=== PATIENT | female | born 1985 | race Caucasian/White ===

== ENCOUNTER 2018-01-07 06:20 | Inpatient (IN) | payer BC ==
[2018-01-07] MEDS ORDERED: Dextrose 5%-Lactated Ringers 1,000 ML IV SCH (06:45)
[2018-01-07] MEDS ORDERED: Celecoxib 200 MG Cap PO ONE (06:50)
[2018-01-07] MEDS ORDERED: Scopolamine 1.5 MG Transdermal Patch TOP ONE (06:50)
[2018-01-07] MEDS ORDERED: Acetaminophen 500 MG Tab PO ONE (06:50)
[2018-01-07] MEDS ORDERED: Gabapentin 300 MG Cap PO ONE (06:50)
[2018-01-07] MEDS ORDERED: cefOXitin 2 GM in Sodium Chloride 0.9% 50 ML IV ONE (06:50)
[2018-01-07] MEDS ORDERED: cefOXitin 2 GM Vial ONE (06:51)
[2018-01-07] MEDS ORDERED: fentaNYL 250 MCG/5 ML SDV ONE ×2 (07:33→09:32)
[2018-01-07] MEDS ORDERED: Neostigmine Methylsulfate 1 MG/ML 5 ML Syringe ONE (07:34)
[2018-01-07] MEDS ORDERED: Propofol 200 MG/20 ML SDV ONE (07:34)
[2018-01-07] MEDS ORDERED: Rocuronium 50 MG/5 ML Vial ONE (07:34)
[2018-01-07] MEDS ORDERED: Ondansetron 4 MG/2 ML SDV ONE (07:34)
[2018-01-07] MEDS ORDERED: Glycopyrrolate 0.2 MG/ML 5 ML MDV ONE (07:34)
[2018-01-07] MEDS ORDERED: Dexamethasone 4 MG/ML SDV ONE (07:34)
[2018-01-07] MEDS ORDERED: Succinylcholine 200 MG/10 ML MDV ONE (07:34)
[2018-01-07] MEDS ORDERED: Ropivacaine 60 ML, Dexamethasone 8 MG, EPINEPHrine 0.4 MG, Sodium Chloride 0.9% 17.6 ML NERVRT SCH ×4 (08:00)
[2018-01-07] MEDS ORDERED: Lidocaine 2% 100 MG/5 ML Syringe IVPUSH ONE (08:00)
[2018-01-07] MEDS ORDERED: Ketamine 500 MG/5 ML MDV IV SCH (08:00)
[2018-01-07] MEDS ORDERED: Lactated Ringers 1,000 ML ONE (09:26)
[2018-01-07] MEDS ORDERED: fentaNYL 100 MCG/2 ML SDV ONE (11:02)
[2018-01-07] MEDS ORDERED: hydrOXYzine HCl 100 MG/2 ML SDV IM ONE ×2 (11:27→15:40)
[2018-01-07] MEDS: Lidocaine 0.4%/D5W 2 GM/500 ML BAG IV SCH (12:15)
[2018-01-07] MEDS: Dextrose 5%-Lactated Ringers 1,000 ML IV SCH ×3 (12:19→23:31)
[2018-01-07] MEDS: hydrOXYzine HCl 100 MG/2 ML SDV IM PRN ×2 (12:30→21:55)
[2018-01-07] MEDS ORDERED: Labetalol 20 MG/4 ML Syringe IVPUSH PRN (13:00)
[2018-01-07] MEDS ORDERED: diphenhydrAMINE 50 MG/ML SDV IVPUSH PRN (13:00)
[2018-01-07] MEDS ORDERED: Ondansetron 4 MG/2 ML SDV IVPUSH PRN (13:00)
[2018-01-07] MEDS ORDERED: SCOPOLAMINE PATCH CHECK TOP SCH (13:00)
[2018-01-07] MEDS ORDERED: Metoclopramide 10 MG/2 ML SDV IVPUSH PRN (13:00)
[2018-01-07] MEDS: Acetaminophen Soln 650 MG/20.3 ML UD Cup PO SCH ×2 (13:47→19:45)
[2018-01-07] MEDS: cefOXitin 2 GM in Sodium Chloride 0.9% 50 ML IV SCH ×2 (13:59→19:45)
[2018-01-07] MEDS ORDERED: Pantoprazole 40 MG Vial IVPUSH SCH (14:00)
[2018-01-07] MEDS: Gabapentin 250 MG/5 ML Solution ML 470 ML Bottle PO SCH ×2 (14:02→21:54)
[2018-01-07] MEDS ORDERED: Meperidine PF 100 MG/ML Syringe IM ONE (15:40)
[2018-01-07] MEDS ORDERED: MVI, Adult with Vitamin K 10 ML, Thiamine 100 MG, Chromium/Copper/Mang/Selen/Zn 1 ML in... IV SCH ×4 (16:00)
[2018-01-07] MEDS: Heparin Sodium 5,000 Units/ML Vial SUBCUT SCH (17:23)
[2018-01-08] MEDS: cefOXitin 2 GM in Sodium Chloride 0.9% 50 ML IV SCH ×2 (01:24→07:40)
[2018-01-08] MEDS: Lidocaine 0.4%/D5W 2 GM/500 ML BAG IV SCH (01:25)
[2018-01-08] MEDS: Acetaminophen Soln 650 MG/20.3 ML UD Cup PO SCH ×4 (01:27→19:49)
[2018-01-08] MEDS ORDERED: Iohexol 647 MG/ML 50 ML SDV PO STA (03:26)
[2018-01-08] MEDS: Dextrose 5%-Lactated Ringers 1,000 ML IV SCH ×2 (05:24→12:27)
[2018-01-08] MEDS: Heparin Sodium 5,000 Units/ML Vial SUBCUT SCH ×2 (05:27→19:00)
[2018-01-08] MEDS: Celecoxib 200 MG Cap PO SCH (07:43)
--- NOTE | 2018-01-08 08:38 | CR ---
UGI wo KUB HISTORY: eval R -Y GBP FINDINGS: Limited upper GI series was obtained without fluoroscopy. Water-soluble contrast was admini stered orally. Immediate along with 15 minute delayed images were obtained. Small gastric pouch is de monstrated. Contrast passes readily through the gastrojejunostomy into loops of jejunum. No obstructi on is identified. There is no contrast extravasation. Surgical drain is noted left upper quadrant. IMPRESSION: No postoperative complication identified status post Nicole-en-Y gastric bypass.
[2018-01-08] MEDS ORDERED: Ondansetron 4 MG Tab.DIS PO PRN (08:51)
[2018-01-08] MEDS: Gabapentin 250 MG/5 ML Solution ML 470 ML Bottle PO SCH ×3 (09:48→20:43)
[2018-01-08] MEDS ORDERED: Pantoprazole 40 MG Delayed-Release Granules 1 Packet PO SCH (14:00)
[2018-01-08] MEDS ORDERED: MVI, Adult with Vitamin K 10 ML, Thiamine 100 MG, Chromium/Copper/Mang/Selen/Zn 1 ML in... IV SCH ×4 (16:00)
--- NOTE | 2018-01-08 20:45 | PN ---
DATE OF SERVICE: 01/08/2018 SUBJECTIVE: Emeli is postop day 1 following a Nicole-en-Y gastric bypass surgery. Her upper GI this morning was normal. Vital signs have been stable. Her pain is controlled and she has been ambulating. REVIEW OF SYSTEMS: Remainder of review of systems negative for any pertinent positives and negatives. OBJECTIVE: GENERAL: Emeli Stout is a 32-year-old female. She is alert and orientated, sitting up in the chair. VITAL SIGNS: TPR 97.9, 79, 17, blood pressure 154/90. HEENT: Negative. NECK: Supple. HEART: Regular rate and rhythm. LUNGS: Clear. ABDOMEN: Dressings dry and intact. DEXTER drain is intact and has put out 100 mL of a light pink serosanguineous drainage. EXTREMITIES: Without peripheral edema. ASSESSMENT: Laparoscopic Nicole-en-Y gastric bypass surgery, repair of paraesophageal diaphragmatic hernia, and Rogers-Cut needle liver biopsy. PLAN: 1. Decrease IV to 100 mL per hour. 2. Step-2 gastric bypass diet without cereal. 3. Dressing off, may shower. 4. Communication order 3 med cups, one every 20 minutes, 3 per hour recorded at bedside. 5. Good pulmonary toilet. 6. Zofran ODT 4 mg q.4 hours p.r.n. nausea sublingual. 7. We will evaluate p.r.n. or in a.m. Micheline Healy PA-C /[id number]
[2018-01-09] MEDS: Acetaminophen Soln 650 MG/20.3 ML UD Cup PO SCH ×2 (01:58→08:00)
[2018-01-09] MEDS: Heparin Sodium 5,000 Units/ML Vial SUBCUT SCH (05:10)
[2018-01-09] MEDS: Celecoxib 200 MG Cap PO SCH (08:00)
[2018-01-09] MEDS: Gabapentin 250 MG/5 ML Solution ML 470 ML Bottle PO SCH (08:00)
[2018-01-09] MEDS ORDERED: Cyanocobalamin (Vitamin B12) 1,000 MCG/ML SDV IM ONE (09:00)
[2018-01-09] MEDS ORDERED: Magnesium Hydroxide 400 MG/5 ML Susp 30 ML Cup PO ONE (11:05)
--- NOTE | 2018-01-11 08:43 | DISCH ---
FINAL DIAGNOSES: 1. Morbid obesity. 2. Hepatomegaly. 3. Paraesophageal diaphragmatic hernia. 4. Mediastinal lipoma. 5. Obstructive sleep apnea. PROCEDURES: Operative procedures done on 01/07/2018, Nicole-en-Y gastric bypass with long limb gastroenterostomy, Rogers-Cut needle liver biopsy, repair of paraesophageal diaphragmatic hernia, and excision of mediastinal lipoma. HOSPITAL COURSE: This is a 32-year-old presenting with a longstanding history of morbid obesity and increasingly significant comorbidities. After preoperative evaluation and discussion, she wished to proceed with a gastric bypass procedure. This was done on the day of admission, with the above-mentioned additional procedures. Postoperatively, she has had no major problems. She will be discharged to home with a combination of Tylenol and gabapentin for her pain, as Celebrex is being worked on in terms of possibly getting that covered by her insurance. She will be taking the gabapentin and, if available, Celebrex x2 weeks, and otherwise, she will follow up with Micheline Healy PA-C, at [facility] in [place] on 01/19/2018.
--- NOTE | 2018-01-13 09:46 | OR ---
DATE OF PROCEDURE: 01/07/2018 PREOPERATIVE DIAGNOSIS: Morbid obesity. POSTOPERATIVE DIAGNOSES: 1. Morbid obesity. 2. Marked hepatomegaly. 3. Paraesophageal diaphragmatic hernia. 4. Mediastinal lipoma. OPERATIVE PROCEDURES: 1. Laparoscopic Nicole-en-Y gastric bypass with long limb gastroenterostomy (45812 ). 2. Rogers-Cut needle liver biopsy (91390). 3. Repair of paraesophageal diaphragmatic hernia (90471). 4. Excision of mediastinal lipoma (99973). ANESTHESIA: General. ASSISTANTS: Micheline Healy PA-C, and GISELE Guzman. INDICATIONS FOR PROCEDURE: This is a 32-year-old female presenting with longstanding morbid obesity with increasingly significant comorbidities. After preoperative evaluation and discussion, she wished to proceed with a gastric bypass procedure. Potential risks of the procedure including bleeding, infection, leaks from various GI tract closures, problems with bowel obstruction over time, as well as possibility of cardiopulmonary, septic, or hemorrhagic complications leading to were discussed, and the patient wishes to proceed. DETAILS OF PROCEDURE: The patient was taken to the operating room, and after general endotracheal anesthesia was induced, was placed in a lithotomy position. An orogastric tube was placed and the abdomen was prepped and draped. At 15 cm inferior, 5 cm left of xiphoid process, a transverse incision was made and peritoneal cavity entered under direct vision with an Optiview trocar, inflated to 15 mmHg pressure with CO2. Laparoscope was then reinserted. No underlying trocar insertion site injuries were seen. Following this, bilateral subcostal transverse abdominis plane blocks were placed with direct visualization of the needle in the area of the transverse abdominis plane and injection of standard solution. Following this, 5 additional trocars were placed across the upper and mid abdomen. General exploration was undertaken. The patient was noted to have a marked hepatomegaly with liver volume being roughly 3 to 4 times normal and strikingly fatty infiltrated. No signs of cirrhosis per se. Rogers-Cut needle biopsies were obtained from the left lobe of the liver. Minimal bleeding from the biopsy sites was controlled with electrocautery. The omentum was then divided in the midline up to the level of the transverse colon. This allowed identification of the small bowel to the ligament of Treitz. The small bowel was then traced out 200 cm distal to that point, where it was divided transversely with a JAVI stapler. The small bowel was then traced out an additional 150 cm, where the [id number] enteroenterostomy was accomplished with internal firing of the Endo-JAVI 60 mm stapler. The common opening was then closed transversely with the same stapler and angles anastomosed and mesenteric defect approximated with some 0 Ethibond stitch, along with fibrin sealant. The divided end of the Nicole limb was then from the mesentery for a few centimeters, which allowed an antecolic position of the Nicole limb up to the level of the gastroesophageal junction without tension. The liver was then retracted anteriorly. The patient was noted to have a moderate-sized paraesophageal diaphragmatic hernia with prolapse of a portion of the gastric fundus, perigastric fat, and edge of the omentum in a plane anterior to the course of the esophagus. This was reduced. The peritoneum overlying it was incised and reflected downward. During the course of the dissection, the mediastinal lipoma was encountered, and this was excised and sent as a separate specimen. Anterior repair of the diaphragmatic hernia was then accomplished with 0 Ethibond sutures reinforced with PTFE pledgets. Following this, the gastrointestinal balloon catheter was inflated to 15 mL and pulled up snugly against the EG junction. Gastric wall over the apex of the balloon was then marked with electrocautery and the balloon catheter pulled up into the esophagus. The lesser omental tissue adjacent to the gastric cardia was then incised, allowing dissection behind the stomach at that level. Gastric pouch was then initiated with a transverse firing of the JAVI stapler at the level of the cauterized virginie on the gastric cardia and then completed with an additional firing of JAVI stapler up to and through the angle of His. Upon completion of the pouch, both staple lines were noted to be intact. The anvil of a 25-mm EEA stapler was attached to Bingham sump-type tube. The latter was brought down through the mouth and taken out through a small opening in the gastric pouch, allowing the anvil likewise to be pulled down to within the gastric pouch. The divided end of the Nicole limb was then opened and main body of the EEA stapler passed several centimeters into the lumen of the small bowel, brought up the anvil, and united with it, thus creating the gastrojejunostomy. Upon removal of the stapler, double donuts of mucosa were noted within it, and the small bowel was closed off with a vascular staple line. Gastrojejunostomy was then reinforced with some 3-0 Vicryl seromuscular stitch, along with fibrin sealant. A leak test was accomplished with injection of 120 mL of air in the gastric pouch, while submerged in the cefoxitin-containing saline solution. No leaks were identified. Two Alexx-Odonnell drains were then placed adjacent to gastrojejunostomy and taken out through subcostal trocar sites. With no further problems noted, trocars were removed and peritoneal cavity deflated. Incisions were closed with some 4-0 Vicryl skin stitch, as was the drain. The patient was taken to the recovery room in satisfactory condition. There were no evident complications. Physician medication assistant, Micheline Healy, played an essential role in assisting in this case, helping to position the patient, retract structures as needed, as well as suturing and cutting sutures when indicated. Her presence improved patient's safety and decreased the operative time. Indio Saldivar MD /[id number]
== END 2018-01-09 11:27 | disposition home or self-care (01) | DRG 403 ==
LOC: JP.SDS 06:20 → JP.SDSSCHI 06:20 → EDSTATUS 07:30 → JP.2SS 11:05
PROVIDERS: ADMIT Surgery; ATTEND Surgery
PROC: 0D164ZA Bypass Stomach to Jejunum, Percutaneous Endoscopic Approach (ICD-10-PCS; principal; 2018-01-07)
PROC: 0FB24ZX Excision of Left Lobe Liver, Percutaneous Endoscopic Approach, Diagnostic (ICD-10-PCS; 2018-01-07)
PROC: 0BQT4ZZ Repair Diaphragm, Percutaneous Endoscopic Approach (ICD-10-PCS; 2018-01-07)
PROC: 0WBC4ZX Excision of Mediastinum, Percutaneous Endoscopic Approach, Diagnostic (ICD-10-PCS; 2018-01-07)
PROC: 3E0T3BZ Introduction of Anesthetic Agent into Peripheral Nerves and Plexi, Percutaneous Approach (ICD-10-PCS; 2018-01-07)
DX: E66.01 Morbid (severe) obesity due to excess calories (principal); Z68.44 Body mass index [BMI] 60.0-69.9, adult; K44.9 Diaphragmatic hernia without obstruction or gangrene; R16.0 Hepatomegaly, not elsewhere classified; K76.0 Fatty (change of) liver, not elsewhere classified; D17.4 Benign lipomatous neoplasm of intrathoracic organs; G47.33 Obstructive sleep apnea (adult) (pediatric); Z99.89 Dependence on other enabling machines and devices
CPT/HCPCS: 36415; 74240; 74240-26; 81025; 82962; 86850; 86900; 86901; 88304; 88307; 88313; A9270-GY; C9113; J0171; J0330; J0694; J1100; J1644; J2001; J2175; J2405; J2704; J2710; J2795; J3010; J3410; J3411; J3420; J7030; J7042; J7050; J7120; Q9967